=== PATIENT | female | born 1965 | race Caucasian/White ===

== ENCOUNTER 2023-01-10 05:18 | Emergency (ER) | payer OTHER ==
[~2023-01-10] VITALS: Ht 167.6 cm; Wt 67.1 kg
[2023-01-10] MEDS ORDERED: ADVAIR HFA 115/12 GM (05:36)
== END 2023-01-10 08:08 | disposition home or self-care (01) ==
LOC: ER 05:18
DX: K29.70 Gastritis, unspecified, without bleeding (principal); R11.10 Vomiting, unspecified